=== PATIENT | female | born 1965 | race Caucasian/White ===

== ENCOUNTER 2024-04-09 10:33 | Emergency (ER) | payer BC ==
[2024-04-09 10:38] VITALS: BP 151/78; PULSE 70; RESP 18; TEMP 98.5; BMI 29.7
[2024-04-09 11:55] LABS: BASO % 0.8 % (0-2.0); EOS % 4.7 % (0-4.5); HEMATOCRIT 41.4 % (32.4-45.2); HEMOGLOBIN 13.9 GM/dL (10.7-15.3); LYMPH % 23.2 % (8-40); MCH 29.1 pg (25.7-33.7); MCHC 33.6 g/dl (32.0-36.0); MEAN CELL VOLUME 86.5 fl (80-96); MONO % 7.2 % (3.8-10.2); NEUT % 64.1 % (42.8-82.8); PLATELET COUNT 454 10^3/uL (134-434); RBC 4.79 M/mm3 (3.60-5.2); RDW 14.8 % (11.6-15.6); WHITE BLOOD COUNT 6.2 K/mm3 (4.0-10.0)
[2024-04-09 12:01] LABS: INR 1.19 (0.83-1.09); PROTHROMBIN TIME (PATIENT) 13.4 SEC (9.7-13.0)
[2024-04-09 12:04] LABS: ACTIVATED PTT 32.2 SECONDS (25.2-36.5)
[2024-04-09 12:07] LABS: POTASSIUM 3.7 mmol/L (3.5-5.1)
[2024-04-09 12:09] LABS: CALCIUM 8.5 mg/dL (8.5-10.1)
[2024-04-09 12:10] LABS: ALBUMIN 3.2 g/dl (3.4-5.0); BLOOD UREA NITROGEN 8.3 mg/dL (7-18)
[2024-04-09 12:13] LABS: CREATININE 0.7 mg/dL (0.55-1.3)
[2024-04-09 12:15] LABS: BILIRUBIN,TOTAL 0.7 mg/dL (0.2-1); TOT PROT 6.9 g/dl (6.4-8.2)
== END 2024-04-09 14:46 | disposition home or self-care (01) ==
LOC: JER 10:33
DX: K80.20 Calculus of gallbladder without cholecystitis without obstruction (principal)
CPT/HCPCS: 36415; 76705-TC; 80053; 83605; 83690; 83735; 84484; 85025; 85610; 85730; 86850; 86900; 86901; 99284-25